=== PATIENT | female | born 1975 | race African-American/Black ===

== ENCOUNTER → 2018-01-29 | Outpatient (CLI) | payer OTHER ==
--- NOTE | 2018-01-29 13:58 | US ---
EXAMINATION TYPE: US venous doppler duplex LE LT DATE OF EXAM: 01/29/2018 8:24 AM COMPARISON: NONE CLINICAL HISTORY: M79.662 Pain in left lower leg, R22.42 Swelling. pain left lower leg x 3-4 days SIDE PERFORMED: left TECHNIQUE: The lower extremity deep venous system is examined utilizing real time linear array sonog chris with graded compression, doppler sonography and color-flow sonography. VESSELS IMAGED: External Iliac Vein (EIV) Common Femoral Vein Deep Femoral Vein Greater Saphenous Vein * Femoral Vein Popliteal Vein Small Saphenous Vein * Proximal Calf Veins (* superficial vessels) There is normal flow, compressibility, vascular waveforms. Left Leg: No evidence of DVT IMPRESSION: No evident deep venous thrombosis at or above the left knee, follow-up as indicated
== END | disposition home or self-care (01) ==
LOC: RADUSWWP 08:04
PROVIDERS: ATTEND Internal Medicine
DX: M79.662 Pain in left lower leg (principal); R22.42 Localized swelling, mass and lump, left lower limb